=== PATIENT | male | born 1970 | race Hispanic/Latino ===

== ENCOUNTER 2019-06-01 17:59 | Emergency (ER) | payer OTHER | END 2019-06-01 20:16 | disposition home or self-care (01) | LOC: EDH 17:59 | DX: S83.8X1A Sprain of other specified parts of right knee, initial encounter (principal); F41.9 Anxiety disorder, unspecified; F32.9 Major depressive disorder, single episode, unspecified; E78.5 Hyperlipidemia, unspecified; I10 Essential (primary) hypertension; X58.XXXA Exposure to other specified factors, initial encounter; Y93.39 Activity, other involving climbing, rappelling and jumping off; Y92.89 Other specified places as the place of occurrence of the external cause; Y99.8 Other external cause status | CPT/HCPCS: 29505; 73562 ==

== ENCOUNTER 2022-01-28 17:58 | Emergency (ER) | payer OTHER ==
[~2022-01-28] VITALS: Ht 175.3 cm; Wt 127.0 kg
[2022-01-28 18:14] LABS: BASOPHILS % (AUTO) 0.5 % (0.0-5.0); EOSINOPHILS % (AUTO) 2.7 % (0.0-8.0); HEMATOCRIT 46.6 % (42-54); LYMPHOCYTES % (AUTO) 23.2 % (21.0-51.0); MEAN CORPUSCULAR HEMOGLOBIN 30.8 pg (27.0-33.0); MEAN CORPUSCULAR HGB CONC 34.1 g/dL (32.0-36.0); MEAN CORPUSCULAR VOLUME 90.3 fL (79-99); MONOCYTES % (AUTO) 8.8 % (3.0-13.0); NEUTROPHILS % (AUTO) 64.1 % (40.0-77.0); PLATELET COUNT (AUTO) 190 K/uL (130-400); RED BLOOD CELL COUNT(AUTO) 5.16 MIL/uL (4.50-6.20); RED CELL DISTRIBUTION WIDTH 13.1 % (11.0-15.5); WHITE BLOOD COUNT (AUTO) 13.8 K/uL (4.8-10.8)
[2022-01-28 18:22] LABS: POTASSIUM 3.6 mmol/L (3.5-5.1)
[2022-01-28 18:31] LABS: ALBUMIN 3.6 g/dL (3.5-5.0); TOTAL PROTEIN, SERUM 7.5 g/dL (6.0-8.3)
[2022-01-28] MEDS ORDERED: 0.9%NACL 1000ML 1,000 ML IV ONE (19:30)
[2022-01-28 19:45] LABS: APPEARANCE,URINE CLEAR (CLEAR); BILIRUBIN,URINE NEGATIVE (NEGATIVE); COLOR,URINE YELLOW (YELLOW); GLUCOSE, URINE (UA) NEGATIVE (NEGATIVE); KETONES,URINE NEGATIVE (NEGATIVE); LEUKOCYTE ESTERASE ,URINE NEGATIVE (NEGATIVE); NITRATE,URINE NEGATIVE (NEGATIVE); OCCULT BLOOD,URINE TRACE-INTACT (NEGATIVE); PROTEIN,URINE NEGATIVE (NEGATIVE); UROBILINOGEN,URINE 0.2 mg/dL (0.2-1.0)
[2022-01-28 20:01] LABS: BACTERIA,URINE Rare /HPF (None Seen); RBC,URINE 0-1 /HPF (0-1); SQUAMOUS EPITHELIAL CELL,UR Rare /HPF (0-2); WBC,URINE 0-1 /HPF (0-1)
[2022-01-28] MEDS ORDERED: CEFTRIAXONE 1G VIAL IVP ONE (20:30)
[2022-01-28 21:21] VITALS: BP 124/71
== END 2022-01-28 21:51 | disposition home or self-care (01) ==
LOC: EDH 17:58
DX: E86.0 Dehydration (principal); Z20.822 Contact with and (suspected) exposure to COVID-19; E78.00 Pure hypercholesterolemia, unspecified; I10 Essential (primary) hypertension
CPT/HCPCS: 99285; 96374; 71045; 87635; 82550; 84484; 80053; 85025; 87040 ×2; 87088; 87880; 87804 ×2; 83605; 81001; 36415; 93005; C9803; J7030; J0696

== ENCOUNTER → 2022-03-08 | Outpatient (CLI) | payer OTHER ==
[~2022-03-08] MED LIST: GADOTERATE MEGLUMINE 10 MMOL/20 ML VIAL IV ONE
== END | disposition home or self-care (01) ==
LOC: RAH 10:42
PROVIDERS: ATTEND Family Medicine
DX: D49.7 Neoplasm of unspecified behavior of endocrine glands and other parts of nervous system (principal)
CPT/HCPCS: 70553; A9575

== ENCOUNTER 2022-11-23 14:16 | Inpatient (IN) | payer OTHER ==
[~2022-11-23] VITALS: Ht 177.8 cm; Wt 130.2 kg
[2022-11-23 14:39] LABS: BASOPHILS % (AUTO) 0.7 % (0.0-5.0); EOSINOPHILS % (AUTO) 2.7 % (0.0-8.0); HEMATOCRIT 46.2 % (42-54); LYMPHOCYTES % (AUTO) 22.7 % (21.0-51.0); MEAN CORPUSCULAR HEMOGLOBIN 30.3 pg (27.0-33.0); MEAN CORPUSCULAR HGB CONC 33.5 g/dL (32.0-36.0); MEAN CORPUSCULAR VOLUME 90.4 fL (79-99); MONOCYTES % (AUTO) 8.1 % (3.0-13.0); NEUTROPHILS % (AUTO) 65.3 % (40.0-77.0); PLATELET COUNT (AUTO) 198 K/uL (130-400); RED BLOOD CELL COUNT(AUTO) 5.11 MIL/uL (4.50-6.20); RED CELL DISTRIBUTION WIDTH 13.4 % (11.0-15.5); WHITE BLOOD COUNT (AUTO) 9.8 K/uL (4.8-10.8)
[2022-11-23 14:54] LABS: CREATININE 0.8 mg/dL (0.5-1.5); TOTAL PROTEIN, SERUM 7.4 g/dL (6.0-8.3)
[2022-11-23 15:04] LABS: ALBUMIN 3.7 g/dL (3.5-5.0)
[2022-11-23] MEDS ORDERED: ASPIRIN 81MG CHEW TAB ONE (16:40)
[2022-11-23] MEDS ORDERED: NITROGLYCERIN 50MG/D5W 250ML 1 BOT ONE (16:40)
[2022-11-23] MEDS ORDERED: NITROGLYCERIN 1GM OINT 1 INCH/1GM TD ONE ×2 (16:40→17:00)
[2022-11-23] MEDS ORDERED: NITROGLYCERIN 50MG/D5W 250ML 250 BOT IV SCH (17:00)
[2022-11-23] MEDS ORDERED: ASPIRIN 325MG TAB PO ONE (17:00)
[2022-11-23] MEDS ORDERED: CLOPIDOGREL 300MG TAB PO ONE (18:30)
[2022-11-23] MEDS ORDERED: METOPROLOL TARTRATE 25 MG TAB PO ONE (18:30)
[2022-11-23] MEDS ORDERED: METOPROLOL TARTRATE 25 MG TAB ONE (18:33)
[2022-11-23] MEDS ORDERED: CLOPIDOGREL 300MG TAB ONE (18:33)
[2022-11-23 19:23] LABS: INR 0.94 (0.85-1.15)
[2022-11-23 19:24] LABS: PARTIAL THROMBOPLASTIN TIME 29.2 SEC (26.3-35.5)
[2022-11-23] MEDS ORDERED: LABETALOL 20MG SYG IV PRN (19:30)
[2022-11-23] MEDS ORDERED: CLONIDINE HCL 0.1 MG TABLET PO PRN (19:30)
[2022-11-23] MEDS ORDERED: TEMAZEPAM 15 MG CAPSULE PO PRN (19:30)
[2022-11-23] MEDS ORDERED: ACETAMINOPHEN 325 MG TAB PO PRN (19:30)
[2022-11-23] MEDS ORDERED: ONDANSETRON 4MG INJ IVP PRN (19:30)
[2022-11-23] MEDS ORDERED: HYDROCODONE/ACETAMINOPHEN 5/325 MG TAB PO PRN (19:30)
[2022-11-23] MEDS ORDERED: HYDRALAZINE 20MG/ML VIAL IV PRN (19:30)
[2022-11-23] MEDS: 0.9%NACL 1000ML 1,000 ML IV SCH (20:04)
[2022-11-23] MEDS: HEPARIN 25,000 UNITS/250ML D5W 250 ML IV SCH (20:05)
[2022-11-23] MEDS: INSULIN HUMULIN R 100 UNIT/ML 3ML SQ SCH (20:19)
[2022-11-23] MEDS: SIMVASTATIN 20 MG TABLET PO SCH (22:11)
[2022-11-24] VITALS (71 sets, daily range): BP systolic 106–158; BP diastolic 37–108
[2022-11-24 02:12] LABS: HEMATOCRIT 43.1 % (42-54); MEAN CORPUSCULAR HEMOGLOBIN 30.3 pg (27.0-33.0); MEAN CORPUSCULAR HGB CONC 32.9 g/dL (32.0-36.0); MEAN CORPUSCULAR VOLUME 91.9 fL (79-99); RED BLOOD CELL COUNT(AUTO) 4.69 MIL/uL (4.50-6.20); RED CELL DISTRIBUTION WIDTH 13.4 % (11.0-15.5); WHITE BLOOD COUNT (AUTO) 10.9 K/uL (4.8-10.8)
[2022-11-24 02:40] LABS: CREATININE 0.8 mg/dL (0.5-1.5); MAGNESIUM 2.1 mg/dL (1.80-2.40); PHOSPHORUS 3.8 mg/dL (2.5-4.9); POTASSIUM 3.5 mmol/L (3.5-5.1); THYROID STIMULATING HORMONE 0.68 uIU/mL (0.36-3.74)
[2022-11-24] MEDS: INSULIN HUMULIN R 100 UNIT/ML 3ML SQ SCH ×4 (06:35→20:43)
[2022-11-24] MEDS: HEPARIN 25,000 UNITS/250ML D5W 250 ML IV SCH ×2 (08:38→19:00)
[2022-11-24] MEDS ORDERED: LISINOPRIL 10 MG TABLET PO ONE (10:30)
[2022-11-24] MEDS ORDERED: FENOFIBRATE NANOCRYSTALLIZED 48 MG TAB PO SCH (10:30)
[2022-11-24] MEDS ORDERED: CLOPIDOGREL 75MG TAB PO ONE (10:30)
[2022-11-24] MEDS: ASPIRIN 81MG CHEW TAB PO SCH (10:34)
[2022-11-24] MEDS: NITROGLYCERIN 1GM OINT 1 INCH/1GM TD SCH ×2 (15:14→20:43)
[2022-11-24] MEDS ORDERED: MAGNESIUM 2GM PREMIX 50ML 50 ML IV PRN (15:30)
[2022-11-24] MEDS ORDERED: POTASSIUM CHLORIDE 20MEQ/100ML 100 ML IV PRN (15:30)
[2022-11-24] MEDS ORDERED: POTASSIUM CHLORIDE 10% ELIXIR 20 MEQ/15 ML UDCUP PO PRN (15:30)
[2022-11-24] MEDS: 0.9%NACL 1000ML 1,000 ML IV SCH (15:36)
[2022-11-24] MEDS: KCL 20 MEQ ERTAB PO PRN ×2 (16:23→17:26)
[2022-11-24] MEDS: SIMVASTATIN 20 MG TABLET PO SCH (20:41)
[2022-11-25] VITALS (24 sets, daily range): BP systolic 95–140; BP diastolic 31–87
[2022-11-25] MEDS: NITROGLYCERIN 1GM OINT 1 INCH/1GM TD SCH ×4 (02:27→21:00)
[2022-11-25 05:29] LABS: BASOPHILS % (AUTO) 0.7 % (0.0-5.0); EOSINOPHILS % (AUTO) 2.4 % (0.0-8.0); HEMATOCRIT 42.8 % (42-54); LYMPHOCYTES % (AUTO) 26.1 % (21.0-51.0); MEAN CORPUSCULAR HEMOGLOBIN 30.2 pg (27.0-33.0); MEAN CORPUSCULAR HGB CONC 32.2 g/dL (32.0-36.0); MEAN CORPUSCULAR VOLUME 93.7 fL (79-99); PLATELET COUNT (AUTO) 188 K/uL (130-400); RED BLOOD CELL COUNT(AUTO) 4.57 MIL/uL (4.50-6.20); RED CELL DISTRIBUTION WIDTH 13.7 % (11.0-15.5); WHITE BLOOD COUNT (AUTO) 10.7 K/uL (4.8-10.8)
[2022-11-25 05:44] LABS: CREATININE 0.7 mg/dL (0.5-1.5); POTASSIUM 3.9 mmol/L (3.5-5.1)
[2022-11-25 06:04] LABS: HEMOGLOBIN A1C 5.6 % (4.0-6.0)
[2022-11-25] MEDS: INSULIN HUMULIN R 100 UNIT/ML 3ML SQ SCH ×4 (06:08→20:49)
[2022-11-25 06:15] LABS: B-TYPE NATRIURETIC PEPTIDE 20 pg/mL (0-100)
[2022-11-25 06:31] LABS: APPEARANCE,URINE CLEAR (CLEAR); BILIRUBIN,URINE NEGATIVE (NEGATIVE); COLOR,URINE LIGHT-YELLOW (YELLOW); GLUCOSE, URINE (UA) NEGATIVE (NEGATIVE); KETONES,URINE NEGATIVE (NEGATIVE); LEUKOCYTE ESTERASE ,URINE NEGATIVE Leu/uL (NEGATIVE); NITRATE,URINE NEGATIVE (NEGATIVE); PROTEIN,URINE NEGATIVE (NEGATIVE); UROBILINOGEN,URINE 0.2 mg/dL (0.2-1.0)
[2022-11-25 06:37] LABS: AMPHET/METH SCREEN,URINE NEGATIVE (NEGATIVE); BARBITURATE SCREEN, URINE NEGATIVE (NEGATIVE); BENZODIAZEPINES SCREEN,URINE NEGATIVE (NEGATIVE); CANNABINOID SCREEN,URINE NEGATIVE (NEGATIVE); COCAINE SCREEN,URINE NEGATIVE (NEGATIVE); MUCUS,URINE RARE LPF (None Seen); OPIATE SCREEN,URINE NEGATIVE (NEGATIVE); PHENCYCLIDINE SCREEN,URINE NEGATIVE (NEGATIVE); RBC,URINE 0-1 /HPF (0-1); SQUAMOUS EPITHELIAL CELL,UR RARE /HPF (0-2); WBC,URINE 0-1 /HPF (0-1)
[2022-11-25] MEDS: METOPROLOL TARTRATE 25 MG TAB PO SCH ×2 (08:41→20:50)
[2022-11-25] MEDS: LISINOPRIL 5 MG TABLET PO SCH (09:00)
[2022-11-25] MEDS ORDERED: METOPROLOL TARTRATE 25 MG TAB PO SCH (09:00)
[2022-11-25] MEDS: ASPIRIN 81MG CHEW TAB PO SCH (09:00)
[2022-11-25] MEDS ORDERED: CLOPIDOGREL 75MG TAB PO SCH (09:00)
[2022-11-25] MEDS ORDERED: LISINOPRIL 10 MG TABLET PO SCH (09:00)
[2022-11-25] MEDS: FENOFIBRATE NANOCRYSTALLIZED 48 MG TAB PO SCH (09:00)
[2022-11-25] MEDS: 0.9%NACL 1000ML 1,000 ML IV SCH (11:38)
[2022-11-25] MEDS ORDERED: LIDOCAINE HCL 400MG/20ML VIAL ONE (15:11)
[2022-11-25] MEDS ORDERED: BIVALIRUDIN 250 MG/VIAL IV ONE (15:12)
[2022-11-25] MEDS ORDERED: IOHEXOL 350 MG/ML 100ML INFUS..BTL IV ONE (15:12)
[2022-11-25] MEDS ORDERED: FENTANYL CITRATE PF 50 MCG/1 ML 2ML VIAL ONE (15:12)
[2022-11-25] MEDS ORDERED: NITROGLYCERIN 50MG VIAL ONE (15:12)
[2022-11-25] MEDS ORDERED: HEPARIN 10,000 UNIT/10ML (1,000 UNIT/ML) VIAL ONE (15:12)
[2022-11-25] MEDS ORDERED: IOHEXOL-350 50ML VIAL IV ONE (15:12)
[2022-11-25] MEDS ORDERED: ASPIRIN 325MG EC TAB PO ONE (16:08)
[2022-11-25] MEDS ORDERED: PRASUGREL HCL 10 MG TABLET ONE (16:08)
[2022-11-25] MEDS ORDERED: 0.9%NACL 1000ML 1,000 ML IV SCH (17:00)
[2022-11-25] MEDS ORDERED: ATORVASTATIN 40 MG TABLET PO SCH (21:00)
[2022-11-26] VITALS (11 sets, daily range): BP systolic 110–136; BP diastolic 52–73
[2022-11-26] MEDS: NITROGLYCERIN 1GM OINT 1 INCH/1GM TD SCH ×2 (03:20→08:19)
[2022-11-26 04:45] LABS: BASOPHILS % (AUTO) 0.5 % (0.0-5.0); EOSINOPHILS % (AUTO) 1.8 % (0.0-8.0); HEMATOCRIT 42.7 % (42-54); LYMPHOCYTES % (AUTO) 20.5 % (21.0-51.0); MEAN CORPUSCULAR HEMOGLOBIN 30.8 pg (27.0-33.0); MEAN CORPUSCULAR HGB CONC 33.3 g/dL (32.0-36.0); MEAN CORPUSCULAR VOLUME 92.6 fL (79-99); MONOCYTES % (AUTO) 10.2 % (3.0-13.0); NEUTROPHILS % (AUTO) 66.5 % (40.0-77.0); PLATELET COUNT (AUTO) 169 K/uL (130-400); RED BLOOD CELL COUNT(AUTO) 4.61 MIL/uL (4.50-6.20); RED CELL DISTRIBUTION WIDTH 13.3 % (11.0-15.5); WHITE BLOOD COUNT (AUTO) 10.5 K/uL (4.8-10.8)
[2022-11-26 04:54] LABS: CREATININE 0.8 mg/dL (0.5-1.5); POTASSIUM 3.7 mmol/L (3.5-5.1)
[2022-11-26] MEDS: 0.9%NACL 1000ML 1,000 ML IV SCH (06:05)
[2022-11-26] MEDS: INSULIN HUMULIN R 100 UNIT/ML 3ML SQ SCH (06:08)
[2022-11-26] MEDS: FENOFIBRATE NANOCRYSTALLIZED 48 MG TAB PO SCH (08:18)
[2022-11-26] MEDS: METOPROLOL TARTRATE 25 MG TAB PO SCH (08:18)
[2022-11-26] MEDS: ASPIRIN 81MG CHEW TAB PO SCH (08:18)
[2022-11-26] MEDS: LISINOPRIL 5 MG TABLET PO SCH (08:19)
[2022-11-26] MEDS ORDERED: PRASUGREL HCL 10 MG TABLET PO SCH (09:00)
== END 2022-11-26 10:35 | disposition home or self-care (01) | DRG 246 ==
LOC: EDH 14:16 → OBSVTOIN 19:14 → EDHIP 19:14 → 2BH 11-24 01:29
PROVIDERS: ADMIT Internal Medicine; ATTEND Internal Medicine
PROC: 4A023N7 Measurement of Cardiac Sampling and Pressure, Left Heart, Percutaneous Approach (ICD-10-PCS; principal; 2022-11-23)
PROC: 027135Z Dilation of Coronary Artery, Two Arteries with Two Drug-eluting Intraluminal Devices, Percutaneous Approach (ICD-10-PCS; 2022-11-23)
PROC: B2111ZZ Fluoroscopy of Multiple Coronary Arteries using Low Osmolar Contrast (ICD-10-PCS; 2022-11-23)
PROC: B2151ZZ Fluoroscopy of Left Heart using Low Osmolar Contrast (ICD-10-PCS; 2022-11-23)
PROC: B41F1ZZ Fluoroscopy of Right Lower Extremity Arteries using Low Osmolar Contrast (ICD-10-PCS; 2022-11-23)
DX: I25.110 Atherosclerotic heart disease of native coronary artery with unstable angina pectoris (principal); I21.A1 Myocardial infarction type 2; Z68.41 Body mass index [BMI] 40.0-44.9, adult; I73.9 Peripheral vascular disease, unspecified; Z20.822 Contact with and (suspected) exposure to COVID-19; I11.9 Hypertensive heart disease without heart failure; E66.01 Morbid (severe) obesity due to excess calories; E78.00 Pure hypercholesterolemia, unspecified; F32.A Depression, unspecified; F41.9 Anxiety disorder, unspecified; G47.33 Obstructive sleep apnea (adult) (pediatric); Z95.5 Presence of coronary angioplasty implant and graft; Z79.02 Long term (current) use of antithrombotics/antiplatelets; Z79.82 Long term (current) use of aspirin; Z91.148 Patient's other noncompliance with medication regimen for other reason
CPT/HCPCS: 36415; 71045; 80048; 80053; 80061; 80305; 81001; 82550; 82948; 83036; 83735; 83874; 83880; 84100; 84443; 84484; 85025; 85027; 85378; 85610; 85730; 87635; 87804; 93005; 93306; 93356; 93458; 99156; 99157; C1760; C1887; C1894; C9600; C9601; G0378; J0583; J1644; J2405; J3010; J3490; Q9967

== ENCOUNTER 2023-01-31 18:56 | Emergency (ER) | payer OTHER ==
[~2023-01-31] VITALS: Ht 177.8 cm; Wt 115.7 kg
[2023-01-31 19:41] LABS: HEMATOCRIT 42.9 % (42-54); MEAN CORPUSCULAR HGB CONC 33.6 g/dL (32.0-36.0); MEAN CORPUSCULAR VOLUME 92.3 fL (79-99); PLATELET COUNT (AUTO) 195 K/uL (130-400); RED BLOOD CELL COUNT(AUTO) 4.65 MIL/uL (4.50-6.20); WHITE BLOOD COUNT (AUTO) 11.3 K/uL (4.8-10.8)
[2023-01-31 19:48] LABS: BASOPHILS # (AUTO) 0.06 K/uL (0.00-0.20); BASOPHILS % (AUTO) 0.5 % (0.0-5.0); EOSINOPHILS # (AUTO) 0.29 K/uL (0.00-0.70); EOSINOPHILS % (AUTO) 2.6 % (0.0-8.0); IMMATURE GRANULOCYTE ABSOLUTE 0.02 K/uL (0-1); LYMPHOCYTES # (AUTO) 2.7 K/uL (1.0-4.8); LYMPHOCYTES % (AUTO) 24.4 % (21.0-51.0); MONOCYTES # (AUTO) 0.9 K/uL (0.1-1.0); MONOCYTES % (AUTO) 8.1 % (3.0-13.0); NEUTROPHILS # (AUTO) 7.1 K/uL (1.8-7.7); NEUTROPHILS % (AUTO) 64.2 % (40.0-77.0)
[2023-01-31 19:51] LABS: CREATININE 0.9 mg/dL (0.5-1.5); POTASSIUM 3.6 mmol/L (3.5-5.1)
[2023-01-31 19:58] LABS: ALBUMIN 3.9 g/dL (3.5-5.0); BILIRUBIN,TOTAL 0.5 mg/dL (0.2-1.0); TOTAL PROTEIN, SERUM 7.3 g/dL (6.0-8.3)
[2023-01-31 20:24] LABS: B-TYPE NATRIURETIC PEPTIDE 32 pg/mL (0-100)
[2023-01-31 20:33] LABS: SARS-CoV-2, RNA, NAAT NEGATIVE SARS CoV-2 (NEGATIVE)
[2023-01-31 20:39] LABS: INFLUENZA TYPE A Negative For Type A (NEGATIVE); INFLUENZA TYPE B Negative For Type B (NEGATIVE)
[2023-01-31] MEDS ORDERED: IBUP-1493 PO (22:47)
[2023-01-31] MEDS ORDERED: LORA-868 PO (22:47)
[2023-01-31 23:11] VITALS: BP 140/88; PULSE 88; RESP 18; O2SAT 96
== END 2023-01-31 23:13 | disposition home or self-care (01) ==
LOC: EDH 18:56
DX: J06.9 Acute upper respiratory infection, unspecified (principal); R07.89 Other chest pain; E78.00 Pure hypercholesterolemia, unspecified; I10 Essential (primary) hypertension; Z20.822 Contact with and (suspected) exposure to COVID-19
CPT/HCPCS: 99284; 71045; 87635; 84484 ×2; 80053; 83880; 85025; 87804 ×2; 36415; 93005; C9803

== ENCOUNTER 2023-07-12 19:51 | Emergency (ER) | payer OTHER ==
[~2023-07-12] VITALS: Ht 175.3 cm; Wt 111.6 kg
[~2023-07-12 19:51] MED LIST changes: -GADOTERATE MEGLUMINE 10 MMOL/20 ML VIAL IV ONE; +IBUP-1493 PO; +LORA-868 PO
[2023-07-12 20:22] LABS: RAPID GROUP A STREP negative (NEGATIVE)
[2023-07-12 20:24] LABS: SARS-CoV-2, RNA, NAAT NEGATIVE SARS CoV-2 (NEGATIVE)
[2023-07-12 20:33] LABS: INFLUENZA TYPE B Negative For Type B (NEGATIVE)
[2023-07-12 20:43] LABS: INFLUENZA TYPE A Positive For Type A (NEGATIVE)
[2023-07-12] MEDS ORDERED: GUAI1TBM19 PO (21:25)
[2023-07-12] MEDS ORDERED: IBUP-1493 PO (21:25)
[2023-07-12 22:21] VITALS: BP 113/63; PULSE 67; RESP 20; O2SAT 96
== END 2023-07-12 22:22 | disposition home or self-care (01) ==
LOC: EDH 19:51
DX: J20.9 Acute bronchitis, unspecified (principal); J11.1 Influenza due to unidentified influenza virus with other respiratory manifestations; E78.00 Pure hypercholesterolemia, unspecified; I10 Essential (primary) hypertension; Z79.1 Long term (current) use of non-steroidal anti-inflammatories (NSAID); Z79.82 Long term (current) use of aspirin; Z95.5 Presence of coronary angioplasty implant and graft; Z20.822 Contact with and (suspected) exposure to COVID-19
CPT/HCPCS: 71045; 84484; 87635; 87804; 87880; 93005

== ENCOUNTER 2023-11-13 13:52 | Emergency (ER) | payer OTHER ==
[~2023-11-13] VITALS: Ht 175.3 cm; Wt 108.9 kg
[~2023-11-13 13:52] MED LIST changes: +GUAI1TBM19 PO; -LORA-868 PO
[2023-11-13 14:53] LABS: BASOPHILS # (AUTO) 0.03 K/uL (0.00-0.20); BASOPHILS % (AUTO) 0.3 % (0.0-5.0); EOSINOPHILS # (AUTO) 0.24 K/uL (0.00-0.70); EOSINOPHILS % (AUTO) 2.1 % (0.0-8.0); HEMATOCRIT 41.4 % (42-54); IMMATURE GRANULOCYTE ABSOLUTE 0.04 K/uL (0-1); LYMPHOCYTES # (AUTO) 2.8 K/uL (1.0-4.8); LYMPHOCYTES % (AUTO) 25.1 % (21.0-51.0); MEAN CORPUSCULAR HEMOGLOBIN 30.7 pg (27.0-33.0); MEAN CORPUSCULAR HGB CONC 34.5 g/dL (32.0-36.0); MEAN CORPUSCULAR VOLUME 88.8 fL (79-99); MONOCYTES # (AUTO) 0.8 K/uL (0.1-1.0); MONOCYTES % (AUTO) 7.3 % (3.0-13.0); NEUTROPHILS # (AUTO) 7.3 K/uL (1.8-7.7); NEUTROPHILS % (AUTO) 64.8 % (40.0-77.0); PLATELET COUNT (AUTO) 199 K/uL (130-400); RED BLOOD CELL COUNT(AUTO) 4.66 MIL/uL (4.50-6.20); RED CELL DISTRIBUTION WIDTH 12.6 % (11.0-15.5); WHITE BLOOD COUNT (AUTO) 11.2 K/uL (4.8-10.8)
[2023-11-13 15:07] LABS: CREATININE 0.8 mg/dL (0.5-1.3); POTASSIUM 3.7 mmol/L (3.5-5.1)
[2023-11-13 15:13] LABS: B-TYPE NATRIURETIC PEPTIDE 25 pg/mL (0-100)
[2023-11-13 16:29] VITALS: BP 120/75; PULSE 57; RESP 18; O2SAT 98
== END 2023-11-13 16:37 | disposition home or self-care (01) ==
LOC: EDH 13:52
DX: R07.89 Other chest pain (principal); R10.13 Epigastric pain; I25.10 Atherosclerotic heart disease of native coronary artery without angina pectoris; I25.2 Old myocardial infarction; E78.00 Pure hypercholesterolemia, unspecified; I10 Essential (primary) hypertension; Z95.5 Presence of coronary angioplasty implant and graft; Z79.899 Other long term (current) drug therapy
CPT/HCPCS: 36415; 71045; 80048; 82550; 83880; 84484; 85025; 93005